=== PATIENT | female | born 1955 | race Caucasian/White ===

== ENCOUNTER 2017-02-04 06:33 | Emergency (ER) | payer MEDICAID, OTHER ==
[~2017-02-04] VITALS: Ht 162.6 cm; Wt 79.4 kg
[~2017-02-04 06:33] MED LIST: ASPIR 8181 MG ORAL; ATIVAN2 MG ORAL; DILAUDID4 MG ORAL; LOPRESSOR25 M1 ORAL; NORCO 5-325 TA1 EACH ORAL; PERCOCET 5-3251 EACH ORAL
[2017-02-04 06:56] VITALS: BP 114/76
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
[2017-02-04] MEDS ORDERED: Bacitracin Oint UD TOPIC ONE (08:00)
[2017-02-04] MEDS ORDERED: Oxycodone/Acetaminophen 5-325 ORAL ONE (08:00)
[2017-02-04] MEDS ORDERED: HYDROmorphone 1mg/ml Carpuject IM ONE (09:00)
[2017-02-04] MEDS ORDERED: DiphenhydrAMINE 50mg/ml Inj IM ONE (09:00)
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
--- NOTE | 2017-02-04 09:23 | Diagnostic Imaging Report ---
Indication: TRAUMA Technique: Spiral acquisitions obtained through the cervical spine. No IV contrast utilized. Multiplanar reconstructions were generated. Total dose length product 595 mGycm. CTDIvol(s) 28 mGy. Dose reduction achieved using automated exposure control Comparison: None Findings: There is reversal of the normal cervical lordosis, otherwise normal bony alignment. No acute fractures. No dislocations. There is degenerative disc narrowing at C6-7. The remainder of the disc spaces are preserved. At C6-7, there is moderate left neural foraminal stenosis. No significant disc bulge or protrusion. The remaining disc levels, no significant disc bulge or protrusion, spinal stenosis, or neural foraminal stenosis. The included extraspinal soft tissues are unremarkable. Impression: No acute bony trauma Mild degenerative changes, as described The CT scanner at [facility] is accredited by the [employer] and the scans are performed using protocols designed to limit radiation exposure to as low as reasonably achievable to attain images of sufficient resolution adequate for diagnostic evaluation.
[2017-02-04] MEDS ORDERED: PERCOCET 5-3251 EACH ORAL (09:50)
[2017-02-04 09:58] VITALS: BP 119/73
[2017-02-04 10:02] VITALS: BP 119/73
--- NOTE | 2017-02-04 13:09 | Diagnostic Imaging Report ---
Indication: TRAUMA Technique: 3 views of the left ankle Comparison: none Findings: There is slight soft tissue swelling over the lateral malleolus. No acute fractures. No dislocations. Joint spaces are preserved. Bones are osteoporotic Impression: Soft tissue swelling. No acute process
== END 2017-02-04 10:02 | disposition home or self-care (01) ==
LOC: EMR 07:51
DX: S93.402A Sprain of unspecified ligament of left ankle, initial encounter (principal); S80.01XA Contusion of right knee, initial encounter; S60.512A Abrasion of left hand, initial encounter; W10.9XXA Fall (on) (from) unspecified stairs and steps, initial encounter; Y92.89 Other specified places as the place of occurrence of the external cause; M48.02 Spinal stenosis, cervical region; M47.812 Spondylosis without myelopathy or radiculopathy, cervical region; M50.323 Other cervical disc degeneration at C6-C7 level; M17.11 Unilateral primary osteoarthritis, right knee; I10 Essential (primary) hypertension; Z86.73 Personal history of transient ischemic attack (TIA), and cerebral infarction without residual deficits; Z96.642 Presence of left artificial hip joint; Z88.6 Allergy status to analgesic agent; Z88.1 Allergy status to other antibiotic agents
CPT/HCPCS: 29530; 29540; 70450; 72125; 73562; 73610; 96372; 99284; J1170; J1200

== ENCOUNTER 2017-09-21 02:58 | Emergency (ER) | payer MEDICAID ==
[~2017-09-21] VITALS: Ht 162.6 cm; Wt 86.2 kg
--- NOTE | 2017-09-21 03:38 | Emergency Room Report ---
History of Present Illness General Chief Complaint: General Complaint Source: Patient Present Illness HPI Is a 62-year-old female with history hypertension and chronic pain. Also history anxiety. Patient presents with chief complaint insomnia. Said she out of her Ambien and wants a refill. She is also taking lorazepam 2 mg twice a day. Also taking Dilaudid at home. Said that her blood pressures also high. She denies any chest pain. Denies any nausea vomiting. No other complaint. Allergies: Coded Allergies: CODEINE (Verified Allergy, Unknown, swelling and welts, 08/13/15) ERYTHROMYCIN BASE (Verified Allergy, Unknown, N/V/Welts, 08/13/15) KETOROLAC (Verified Allergy, Unknown, Welts, 08/13/15) MORPHINE (Verified Allergy, Unknown, Swelling, Welts, 08/13/15) IBUPROFEN (Verified Adverse Reaction, Unknown, vomiting, 08/13/15) Patient History Past Medical History: see triage record, old chart reviewed, HTN Past Surgical History: other Pertinent Family History: none Social History: Denies: smoking Last Menstrual Period: none Now: No : 4 Para: 3 Immunizations: other Reviewed Nursing Documentation: PMH: Agreed, PSxH: Agreed Nursing Documentation-PMH Hx Cardiac Problems: Yes - heart attack 2004 Hx Hypertension: Yes Hx Cerebrovascular Accident: Yes Review of Systems Eye: Denies: eye pain, blurred vision ENT: Denies: ear pain, nose congestion, throat swelling Respiratory: Denies: cough, shortness of breath Cardiovascular: Denies: chest pain, palpitations Gastrointestinal: Denies: abdominal pain, diarrhea, nausea, vomiting Musculoskeletal: Denies: back pain, joint pain Skin: Denies: rash Neurological: Denies: headache, numbness Endocrine: Denies: increased thirst, increased urine Hematologic/Lymphatic: Denies: easy bruising All Other Systems: negative except mentioned in HPI Physical Exam Vital Signs Date Time Temp Pulse Resp B/P (MAP) Pulse Ox O2 Delivery O2 Flow Rate FiO2 09/21/17 03:14 98.1 80 15 199/105 100 Room Air vitals with high blood pressure Sp02 EP Interpretation: reviewed, normal General Appearance: well appearing, no apparent distress, alert Head: normocephalic, atraumatic Eyes: bilateral eye PERRL, bilateral eye EOMI ENT: hearing grossly normal, normal pharynx Neck: full range of motion, supple, no meningismus Respiratory: chest non-tender, lungs clear, normal breath sounds Cardiovascular #1: regular rate, rhythm, no murmur Gastrointestinal: normal bowel sounds, non tender, no mass, no organomegaly, no bruit, non-distended Musculoskeletal: back normal, normal range of motion, other - patient uses a walker Psychiatric: mood/affect normal Skin: warm/dry Medical Decision Making Diagnostic Impression: Primary Impression: Insomnia Qualified Codes: G47.00 - Insomnia, unspecified Additional Impression: Hypertension Qualified Codes: I10 - Essential (primary) hypertension ER Course Patient with insomnia. Patient wanted Ambien but I am hesitant to put her on Ambien and lorazepam and Dilaudid. Patient said she didn't take her blood pressure medication today. We'll discharge home Last Vital Signs Date Time Temp Pulse Resp B/P (MAP) Pulse Ox O2 Delivery O2 Flow Rate FiO2 09/21/17 03:14 98.1 80 15 199/105 100 Room Air Status: improved Disposition: HOME, SELF-CARE Condition: Stable Additional Instructions: You may take Benadryl for sleep. Followup with your Dr. in 2-3 days for refill your medication. Return if symptom worsen. OSCAR MORAES M.D. Sep 21, 2017 03:38
[2017-09-21] MEDS ORDERED: DiphenhydrAMINE 50mg/ml Inj IM ONE (03:45)
[2017-09-21 03:46] VITALS: BP 180/100
== END 2017-09-21 04:00 | disposition home or self-care (01) ==
LOC: EMR 03:59
DX: G47.00 Insomnia, unspecified (principal); I10 Essential (primary) hypertension; G89.29 Other chronic pain; Z88.6 Allergy status to analgesic agent; Z88.1 Allergy status to other antibiotic agents; Z86.73 Personal history of transient ischemic attack (TIA), and cerebral infarction without residual deficits
CPT/HCPCS: 96372; 99283; J1200

== ENCOUNTER 2018-08-01 00:11 | Emergency (ER) | payer MEDICAID ==
[~2018-08-01] VITALS: Ht 162.6 cm; Wt 88.5 kg
[~2018-08-01 00:11] MED LIST changes: +CATAPRES0.1 MG ORAL; +NORCO 10-325 T1 EACH ORAL
[2018-08-01 00:20] VITALS: BP 153/92
--- NOTE | 2018-08-01 00:53 | Emergency Room Report ---
History of Present Illness General Chief Complaint: General Complaint Source: Patient Present Illness HPI This is a 63-year-old female with a history of chronic pain secondary to fibromyalgia. She presents with chief complaint of generalized body pain and bruising. She said Thursday or Thursday she had a seizure was taken to another hospital. Workup was negative. It was attributed to sleep deprivation and pain. She is currently out of her 4 milligram of Dilaudid. She presents with chief complaint of bruising. She has bruising to her right arm where the IV was. Also to the right knee area. Her boyfriend was concerned that she may have a blood clot. She is taking aspirin. No other blood thinner. Denies any other complaint. Pain is 10 out of 10. Throbbing nature. She's taking some old Percocet because she is out of her Dilaudid. Allergies: Coded Allergies: CODEINE (Verified Allergy, Unknown, swelling and welts, 08/13/15) ERYTHROMYCIN BASE (Verified Allergy, Unknown, N/V/Welts, 08/13/15) KETOROLAC (Verified Allergy, Unknown, Welts, 08/13/15) MORPHINE (Verified Allergy, Unknown, Swelling, Welts, 08/13/15) IBUPROFEN (Verified Adverse Reaction, Unknown, vomiting, 08/13/15) Patient History Past Medical History: see triage record, old chart reviewed Past Surgical History: other Pertinent Family History: none Social History: Denies: smoking Now: No Immunizations: other Reviewed Nursing Documentation: PMH: Agreed; PSxH: Agreed Nursing Documentation-PMH Hx Cardiac Problems: Yes - heart attack 2004 Hx Hypertension: Yes Hx Cerebrovascular Accident: Yes Review of Systems Eye: Denies: eye pain, blurred vision ENT: Denies: ear pain, nose congestion, throat swelling Respiratory: Denies: cough, shortness of breath Cardiovascular: Denies: chest pain, palpitations Gastrointestinal: Denies: abdominal pain, diarrhea, nausea, vomiting Musculoskeletal: Reports: joint pain; Denies: back pain Skin: Denies: rash Neurological: Denies: headache, numbness Endocrine: Denies: increased thirst, increased urine Hematologic/Lymphatic: Denies: easy bruising All Other Systems: negative except mentioned in HPI Physical Exam Vital Signs Date Time Temp Pulse Resp B/P (MAP) Pulse Ox O2 Delivery O2 Flow Rate FiO2 08/01/18 00:17 98.4 85 16 153/92 99 Room Air vitals with high blood pressure Sp02 EP Interpretation: reviewed, normal General Appearance: well appearing, no apparent distress, alert Head: normocephalic, atraumatic Eyes: bilateral eye PERRL, bilateral eye EOMI ENT: hearing grossly normal, normal pharynx Neck: full range of motion, supple, no meningismus Respiratory: chest non-tender, lungs clear, normal breath sounds Cardiovascular #1: regular rate, rhythm, no murmur Gastrointestinal: normal bowel sounds, non tender, no mass, no organomegaly, no bruit, non-distended Musculoskeletal: back normal, normal range of motion, other - She has ecchymosis over the right antecubital from IV veronica. She has small circular ecchymosis over the lateral aspect of the right knee. Knee is stable. No calf tenderness. Neurologic: alert, oriented x3 Psychiatric: mood/affect normal Skin: warm/dry Medical Decision Making Diagnostic Impression: Primary Impression: Knee contusion Qualified Codes: S80.01XA - Contusion of right knee, initial encounter Additional Impressions: Contusion of arm, multiple sites Qualified Codes: S40.021A - Contusion of right upper arm, initial encounter Chronic pain Qualified Codes: G89.4 - Chronic pain syndrome ER Course Patient presents with exacerbation of her chronic pain secondary to overuse of her Dilaudid. She gets 90 tablets monthly. She is currently taking Soma, tramadol, Ambien and Dilaudid monthly. She is currently taking Percocet that was left over from her previous doctor. Her seizure may be secondary to withdrawal or overdose. She knows that she had a CT head done but unknown x- rays done. Initially she refused the x-ray of the knee because I would not give her a shot of Dilaudid. Explained to her that she has an issue with chronic pain and opioid dependency. I am not comfortable prescribing her more narcotics. She need to see her doctor or pain specialist for this. After talking to her boyfriend, she agreed to do x-rays. Other X-Ray Diagnostic Results Other X-Ray Diagnostic Results : X-Ray ordered: X-rays knee, right # of Views/Limited Vs Complete: 4 View Indication: Pain EP Interpretation: Yes Interpretation: no dislocation, no soft tissue swelling, no fractures, other - degenerative changes Impression: No acute disease Electronically Signed by: Severiano Cary MD Last Vital Signs Date Time Temp Pulse Resp B/P (MAP) Pulse Ox O2 Delivery O2 Flow Rate FiO2 08/01/18 00:17 98.4 85 16 153/92 99 Room Air Status: unchanged Disposition: HOME, SELF-CARE Condition: Stable Referrals: [facility] (PCP) Additional Instructions: Follow-up with your doctor for refill your pain medication. Follow-up with your doctor in a week. Return if symptom worsen. Severiano Cary MD Aug 01, 2018 00:53
[2018-08-01] MEDS ORDERED: Norco 5mg/325mg tab ORAL ONE (01:00)
[2018-08-01 01:25] VITALS: BP 119/98
--- NOTE | 2018-08-01 02:47 | Diagnostic Imaging Report ---
EXAM: XR Right Knee, 3 views CLINICAL HISTORY: TRAUMA TECHNIQUE: Three views of the right knee. COMPARISON: 02/04/17 FINDINGS: Limitations: Slightly limited lateral view due to obliquity. Bones/joints: Moderate to severe medial joint space narrowing with marginal osteophytes. No definite acute fracture. No dislocation. Soft tissues: Unremarkable. IMPRESSION: 1. Moderate to severe medial joint space narrowing with marginal osteophytes. No definite acute fracture. 2. Slightly limited lateral view due to obliquity.
== END 2018-08-01 01:23 | disposition home or self-care (01) ==
LOC: EMR 00:34
DX: S80.01XA Contusion of right knee, initial encounter (principal); S40.021A Contusion of right upper arm, initial encounter; X58.XXXA Exposure to other specified factors, initial encounter; Y92.9 Unspecified place or not applicable; G89.29 Other chronic pain; M79.7 Fibromyalgia; I10 Essential (primary) hypertension; Z86.73 Personal history of transient ischemic attack (TIA), and cerebral infarction without residual deficits; Z79.82 Long term (current) use of aspirin; Z88.6 Allergy status to analgesic agent; Z88.5 Allergy status to narcotic agent; Z88.1 Allergy status to other antibiotic agents
CPT/HCPCS: 99283

== ENCOUNTER 2018-10-25 22:01 | Emergency (ER) | payer MEDICAID ==
[~2018-10-25] VITALS: Ht 162.6 cm; Wt 86.2 kg
--- NOTE | 2018-10-25 22:22 | NUR ---
ED Nurse Note: Pt walked into ED c/o vero rib pain, pt denies any injury or trauma, pt states she was here september and she fell at that time. pt states she can't lie down on her ribs. pt AA&ox4, gcs=15, skin warm and dry, resp even and unlabored, -n/v/d, ERMD at the bedside will cont monitor.
--- NOTE | 2018-10-25 22:24 | NUR ---
ED Nurse Note: pt states she doesn't want to stay anymore and wants to leave, states "get me out of here."
[2018-10-25 22:25] VITALS: BP 185/96
--- NOTE | 2018-10-25 22:29 | NUR ---
ED Nurse Note: unable to assess pt due to ama. Addendum: 10/25/18 at 2234 by LISSETTE ED Nurse Note: pt refused.
--- NOTE | 2018-10-25 22:29 | NUR ---
ED Nurse Note: pt signed AMA, pt was seen by ERMD prior to leaving, pt refused treatment and plan of care, pt verbalized understanding and the risks, pt advised to follow up with pcp or return to ED. pt vss, family member with pt.
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
--- NOTE | 2018-10-25 22:33 | NUR ---
ED Nurse Note: pt AA&ox4, gcs=15.
== END 2018-10-25 23:00 | disposition left against medical advice (07) ==
LOC: EMR 22:44
DX: G89.29 Other chronic pain (principal); R07.9 Chest pain, unspecified; M79.10 Myalgia, unspecified site; Z88.5 Allergy status to narcotic agent; Z88.1 Allergy status to other antibiotic agents; Z88.6 Allergy status to analgesic agent
CPT/HCPCS: 99282